=== PATIENT | female | born 1955 | race Caucasian/White ===

== ENCOUNTER 2019-01-15 11:09 | Emergency (ER) | payer MEDICARE, OTHER ==
[~2019-01-15] VITALS: Ht 157.5 cm; Wt 75.7 kg
[2019-01-15] MEDS ORDERED: LISINOPRIL10 MG PO (12:01)
--- NOTE | 2019-01-15 12:24 | Diagnostic Imaging Report ---
Left wrist, 3 views. History: Fall. Findings: There is dorsal soft tissue swelling. Bone mineralization is normal. A 4 mm osseous fragment is seen along the posterior aspect of the wrist on the lateral view only. There is no evidence of dislocation. There are no lytic or sclerotic lesions. The joint spaces are within normal limits. IMPRESSION: Avulsion fracture on the dorsum of the wrist, most likely from the triquetrum. Remaining bones appear intact. Signed by: Oj Meza on 01/15/2019 12:20 PM
[2019-01-15 13:51] VITALS: BP 164/97
== END 2019-01-15 13:48 | disposition home or self-care (01) ==
LOC: FSED 11:09
DX: S62.175A Nondisplaced fracture of trapezium [larger multangular], left wrist, initial encounter for closed fracture (principal); I10 Essential (primary) hypertension; W01.0XXA Fall on same level from slipping, tripping and stumbling without subsequent striking against object, initial encounter; Y93.89 Activity, other specified; Y92.007 Garden or yard of unspecified non-institutional (private) residence as the place of occurrence of the external cause
CPT/HCPCS: 99284

== ENCOUNTER 2020-01-01 10:56 | Emergency (ER) | payer MEDICARE, OTHER ==
[~2020-01-01] VITALS: Ht 157.5 cm; Wt 75.7 kg
[~2020-01-01 10:56] MED LIST: LISINOPRIL10 MG PO
[2020-01-01] MEDS ORDERED: ONDANSETRON HCL 4 MG ORAL DISINTEGRATING TAB PO ONE (11:15)
[2020-01-01] MEDS ORDERED: HYDROCODONE/APAP 5MG-325MG TAB PO ONE (11:15)
--- NOTE | 2020-01-01 12:29 | Diagnostic Imaging Report ---
Radiographs of the left wrist - 2 views HISTORY: Pain. Fall. Deformity COMPARISON: 01/15/2019 FINDINGS: Bones: Nondisplaced obliquely oriented fracture through the distal aspect of the left radius with soft tissue swelling. Osseous alignment is within normal limits. Joints: Scattered degenerative change. Soft tissues: No radiopaque foreign body. IMPRESSION: Nondisplaced obliquely oriented fracture through the distal aspect of the left radius with soft tissue swelling. Signed by: Dr. Lv Barrera M.D. on 01/01/2020 12:26 PM
--- NOTE | 2020-01-01 12:30 | Diagnostic Imaging Report ---
Radiographs of the left foot - 2 views HISTORY: Pain. Fall COMPARISON: None available. FINDINGS: Bones: No acute displaced fracture. Osseous alignment is within normal limits. Joints: Scattered degenerative change. No osseous erosion. Inferior calcaneal bone spur. Soft tissues: The soft tissues appear unremarkable. IMPRESSION: Scattered degenerative change. No osseous erosion. Inferior calcaneal bone spur. Signed by: Dr. Lv Barrera M.D. on 01/01/2020 12:27 PM
--- NOTE | 2020-01-01 12:41 | Emergency Department Note ---
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 Historian: Patient, Family Member Arrival Mode: Car Expander Required: No Onset (how long ago): hour(s) Radiation: Reports non-radiation, Reports distal Severity: moderate Onset quality: sudden Duration (how long): hour(s) Timing of current episode: constant Progression: unchanged Chronicity: new Relieving factors: immobilization Exacerbating factors: movement Associated symptoms: Reports denies other symptoms Treatments prior to arrival: none Past Medical/Family History Physician Review I have reviewed the patient's past medical and family history. Any updates have been documented here. Past Medical History Recent Fever: No Clinical Suspicion of Infectio: No New/Unexplained Change in Ment: No Past Medical History: Hypertension, Kidney Stones Past Surgical History: Cholecysctectomy, Hysterectomy Other Surgery: oopherectomy Social History Smoking Cessation: Unknown if ever smoked Counseling Performed: No Alcohol Use: None Any Illegal Drug Use: No Other Any Pre-Existing Lines (PICC,: No Review of Systems Review of Systems Constitutional: Reports no symptoms EENTM: Reports no symptoms Cardiovascular: Reports no symptoms Respiratory: Reports no symptoms Gastrointestinal: Reports no symptoms Genitourinary: Reports no symptoms Musculoskeletal: Reports as per HPI Integumentary: Reports no symptoms Neurological: Reports no symptoms Psychological: Reports no symptoms Endocrine: Reports no symptoms Hematological/Lymphatic: Reports no symptoms Physical Exam Related Data Allergies: Coded Allergies: iodine (Verified Allergy, Intermediate, hives/swelling, 01/15/19) Triage Vital Signs Vital Signs Date Time Temp Pulse Resp B/P (MAP) Pulse Ox O2 Delivery O2 Flow Rate FiO2 01/01/20 10:56 98.4 76 20 155/73 100 Room Air Physical Exam CONSTITUTIONAL Constitutional: Present well-developed, Present well-nourished HENT HENT: Present normocephalic, Present atraumatic, Present oropharynx clear/moist, Present nose normal HENT L/R: Present left ext ear normal, Present right ext ear normal EYES Eyes: Reports PERRL, Reports conjunctivae normal NECK Neck: Present ROM normal PULMONARY Pulmonary: Present effort normal, Present breath sounds normal CARDIOVASCULAR Cardiovascular: Present regular rhythm, Present heart sounds normal, Present capillary refill normal, Present normal rate GASTROINTESTINAL Abdominal: Present soft, Present nontender, Present bowel sounds normal GENITOURINARY Genitourinary: Present exam deferred SKIN Skin: Present warm, Present dry MUSCULOSKELETAL Musculoskeletal: Present edema, Present deformity, Present swelling, Present other (left wrist swelling tender at radial area) NEUROLOGICAL Neurological: Present alert, Present oriented x 3, Present no gross motor or sensory deficits PSYCHOLOGICAL Psychological: Present mood/affect normal, Present judgement normal Results Imaging Imaging results reviewed: Yes Imaging Comments fx radius, non displaced Procedures Orthopedic Splinting/Casting Injury: Injury #1 Side: left Upper exremity injury location: wrist Upper extremity immobilizer: volar splint Additional comments neurovascular intact distally Assessment & Plan Medical Decision Making MDM fracture vs sprain Reassessment Reassessment pain controlled, patient declines CT head Assessment & Plan Final Impression: (1) Fracture of left radius (2) Acute pain due to trauma (3) Sprain of left foot Depart Disposition: HOME, SELF-CARE Last Vital Signs Date Time Temp Pulse Resp B/P (MAP) Pulse Ox O2 Delivery O2 Flow Rate FiO2 01/01/20 10:56 98.4 76 20 155/73 100 Room Air Home Meds Reported Medications Lisinopril (LISINOPRIL) 10 Mg Tablet, 10 MG PO DAILY, #30 TAB 01/15/19 Medications in the ED Acetaminophen/ Hydrocodone Bitart 2 ea ONCE ONCE PO Last administered on 01/01/20at 11:20; Admin Dose 2 EA; Start 01/01/20 at 11:15; Stop 01/01/20 at 11:16; Status DC Ondansetron HCl 4 mg ONCE ONCE PO Last administered on 01/01/20at 11:20; Admin Dose 4 MG; Start 01/01/20 at 11:15; Stop 01/01/20 at 11:16; Status DC Physician Attestation Provider Attestation pt has her own ortho to BILLIE Cantu MD Jan 01, 2020 12:40
--- OUTSIDE RECORDS SUMMARY | 2020-01-03 16:19 | XMS REPORT | Continuity of Care Document ---
Author Author [facility] t Organization [facility] Address [address] [place] [id number] Phone Unavailable Care Team Providers Care Scientific Software Developer Name Role Phone JEANETTE GUTIERREZ MD PCP Ca PEREZ Attphys Unavailable RICKY GUTIERREZ Attphys Unavailable Problems This patient has no known problems. Allergies, Adverse Reactions, Alerts Allergy Name Allergy Type Status Severity Reaction(s) Onset Date Inacti ve Date Treating Clinician Comments Source Iodine Allergy to Substance Active Moderate hives/swelling 2018 00:00:00 [facility] Medications Ordered Medication Name Filled Medication Name Start Date Stop Da te Current Medication? Ordering Clinician Indication Dosage Frequency Signature (SIG) Comments Components Source Lisinopril 10 Mg Tablet Lisinopril 10 Mg Tablet Yes 10 Daily [facility] Procedures This patient has no known procedures. Encounters Start Date/Time End Date/Time Encounter Type [facility] ID Source 2019-01-15 11:09:00 2019-01-15 11:09:00 Registered Emergency Room 1 RICKY GUTIERREZ [facility] [id number] [facility] Results Test Description Test Time Test Comments Results Result Comments Source FOOT 2 VIEW - [facility] 2020-01-01 12:26:00 [facility] [address] [place] [id number] Patient Name: COLLINS TOBIAS MR #: [id number] : 1955 Age/Sex: 64/F Req #: [id number] Adm Physician: Ordered by: BILLIE PEREZ MD Report #: [id number] Location: FS Room/Bed: Procedure: [id number] HOPD/FOOT 2 VIEW LT - HOPD Exam Date: 01/01/20 Exam Time: 1207 REPORT STATUS: Signed Radiographs of the left foot - 2 views HISTORY: Pain. Fall COMPARISON: None available. FINDINGS: Bones: No acute displaced fracture. Osseous alignment is within normal limits. Joints: Scattered degenerative change. No osseous erosion. Inferior calcaneal bone spur. Soft tissues: The soft tissues appear unremarkable. IMPRESSION: Scattered degenerative change. No osseous erosion. Inferior calcaneal bone spur. Signed by: Dr. Lv Barrera M.D. on 01/01/2020 12:27 PM Dictated By: LV BARRERA MD, MD 26 Transcribed By: YOSI on 01/01/20 1227 COPY TO: BILLIE PEREZ MD [facility] 2VW [facility] 2020-01-01 12:23:00 [place] [id number] Patient Name: COLLINS TOBIAS MR #: [id number] : 1955 Age/Sex: 64/F Req #: [id number] [facility] Physician: Ordered by: BILLIE PEREZ MD Report #: [id number] Location: [facility] Room/Bed: Procedure: [id number] HOPD/WRIST 2VW LT -HOPD Exam Date: 01/01/20 Exam Time: 1207 REPORT STATUS: Signed Radiographs of the left wrist - 2 views HISTORY: Pain. Fall. Deformity COMPARISON: 01/15/2019 FINDINGS: Bones: Nondisplaced obliquely oriented fracture through the distal aspect of the left radius with soft tissue swelling. Osseous alignment is within normal limits. Joints: Scattered degenerative change. Soft tissues: No radiopaque foreign body. IMPRESSION: Nondisplaced obliquely oriented fracture through the distal aspect of the left radius with soft tissue swelling. Signed by: Dr. Lv Barrera M.D. on 01/01/2020 12:26 PM Dictated By: LV BARRERA MD, MD 25 Transcribed By: YOSI on 01/01/201225 COPY TO: BILLIE PEREZ MD WRIST 3VW LT - HOPD 2019-01-15 12:15:00 [place] [address] Patient Name: COLLINS TOBIAS MR #: [id number] : 1955 Age/Sex: 63/F Req #: [id number] [facility] Physician: Ordered by: RICKY GUTIERREZ MD Report #: [id number] Location: [facility] Room/Bed: Procedure: [id number] HOPD/WRIST 3VW LT - HOPD Exam Date: 01/15/19 Exam Time: 1207 REPORT STATUS: Signed Left wrist, 3 views. History: Fall. Findings: There is dorsal soft tissue swelling. Bone mineralization is normal. A 4 mm osseous fragment is seen along the posterior aspect of the wrist on the lateral view only. There is no evidence of dislocation. There are no lytic or sclerotic lesions. The joint spaces are within normal limits. IMPRESSION: Avulsion fracture on the dorsum of the wrist, most likely from the triquetrum. Remaining bones appear intact. Signed by: Oj Meza on 01/15/2019 12:20 PM Dictated By: OJ MEZA MD 1220 Transcribed By: YOSI on 01/15/19 1220 COPY TO: RICKY GUTIERREZ MD
== END 2020-01-01 12:47 | disposition home or self-care (01) ==
LOC: FSED 11:07
DX: S52.502A Unspecified fracture of the lower end of left radius, initial encounter for closed fracture (principal); S93.602A Unspecified sprain of left foot, initial encounter; W18.30XA Fall on same level, unspecified, initial encounter; I10 Essential (primary) hypertension
CPT/HCPCS: 29125; 73100; 73620; 99284; Q0162